=== PATIENT | female | born 1940 | race Caucasian/White ===

== ENCOUNTER 2022-12-29 02:33 | Emergency (ER) | payer MEDICARE, OTHER, SELFPAY ==
[2022-12-29 02:45] VITALS: BP 173/75; PULSE 68; RESP 18; TEMP 36.7; O2SAT 99; BMI 35.3
--- NOTE | 2022-12-29 02:59 | ED_ITS ---
HPI - General Adult General Time Seen by Provider: 02:59 <Valente Kelly MD - Last Filed: 01/07/23 19:54> Date Seen: 12/29/22 <Valente Kelly MD - Last Filed: 01/07/23 19:54> Chief complaint: Unspecified Complaint, Adult <Valente Kelly MD - Last Filed: 01/07/23 19:54> Stated complaint: dr called with low K+ results <Valente Kelly MD - Last Filed: 01/07/23 19:54> Time Seen by Provider: 12/29/22 02:38 <Valente Kelly MD - Last Filed: 01/07/23 19:54> Source: patient, RN notes reviewed and old records reviewed <Valente Kelly MD - Last Filed: 01/07/23 19:54> Mode of arrival: ambulatory <Valente Kelly MD - Last Filed: 01/07/23 19:54> Limitations: no limitations <Valente Kelly MD - Last Filed: 01/07/23 19:54> History of Present Illness HPI narrative: 82-year-old female who comes in today with concern for low potassium. Review of chart shows history of hypertension. Patient was seen in clinic yesterday with concern for jaundice and labs were done, potassium reported 2.7 tonight. Per daughter noted jaundice yesterday, prior to this last week patient did not have jaundice. Patient denies nausea, vomiting, abdominal pain. No diarrhea but does note that her stools are light colored. <Valente Kelly MD - Last Filed: 01/07/23 19:54> Related Data Home medications: Home Medications Medication Instructions Recorded Confirmed diltiazem HCl 180 mg 180 mg PO DAILY 09/06/22 09/06/22 capsule,extended release 24 hr hydrochlorothiazide 12.5 mg tablet 12.5 mg PO DAILY 09/06/22 09/06/22 propranolol 40 mg tablet 80 mg PO BID 09/06/22 09/06/22 <Valente Kelly MD - Last Filed: 01/07/23 19:54> Allergies/adverse reactions: Allergies Allergy/AdvReac Type Severity Reaction Status Date / Time No Known Drug Allergies Allergy Verified 12/29/22 02:47 <Valente Kelly MD - Last Filed: 01/07/23 19:54> [facility] Medical History: Medical History (Updated 12/29/22 @ 04:40 by Valente Kelly MD) Hypertension ?I10 - Essential (primary) hypertension (ICD-10) <Valente Kelly MD - Last Filed: 01/07/23 19:54> Surgical History: Surgical History History of biopsy ?Z98.890 - Other specified postprocedural states (ICD-10) History of hysterectomy ?Z90.710 - Acquired absence of both cervix and uterus (ICD-10) <Valente Kelly MD - Last Filed: 01/07/23 19:54> Social History: Social History (Updated 09/06/22 @ 11:00 by Janie Verde ~ [facility], [facility]) Smoking Status: Never smoker Do you use any of these nicotine containing products: None Second hand tobacco smoke exposure: No Non-prescribed substance use: denies use <Valente Kelly MD - Last Filed: 01/07/23 19:54> Exam Narrative: Exam Narrative: General: Well-developed and well-nourished, no acute distress Head: Atraumatic and normocephalic Eyes: Pupils are equal reactive, extraocular motions intact, scleral icterus ENT: External nose and ears are normal, posterior pharynx without erythema or exudate Neck: No midline cervical tenderness, full spontaneous range of motion the neck, trachea midline, no adenopathy Heart: Regular rate and rhythm no murmurs or thrills Lungs: Clear to auscultation bilaterally without wheezes or crackles Abdomen: Soft, nontender, nondistended with active bowel sounds Musculoskeletal: No tenderness, deformity, or edema Neurologic: Awake, alert, and oriented x3, no gross focal neurologic deficits, cranial nerves intact as tested Psych: Mood and affect are appropriate Skin: Jaundice <Valente Kelly MD - Last Filed: 01/07/23 19:54> Const: Vital Signs, click to edit/add: Vital Signs - 24 hr 12/30/22 04:57 12/30/22 12:20 Temperature 98.2 F 99 F Pulse Rate [Right Pulse Oximeter] 67 54 L Respiratory Rate 18 15 Blood Pressure [Le ft Forearm] 113/46 L Blood Pressure [Ri ght Upper Arm] 138/78 Pulse Oximetry 96 98 Oxygen Delivery Me thod Room Air Room Air <Valente Kelly MD - Last Filed: 01/07/23 19:54> Vital Signs, click to edit/add: Vital Signs - 24 hr 12/30/22 04:57 12/30/22 12:20 Temperature 98.2 F 99 F Pulse Rate [Right Pulse Oximeter] 67 54 L Respiratory Rate 18 15 Blood Pressure [Le ft Forearm] 113/46 L Blood Pressure [Ri ght Upper Arm] 138/78 Pulse Oximetry 96 98 Oxygen Delivery Me thod Room Air Room Air <Guille Augustine DO - Last Filed: 12/29/22 21:58> Course Course ED Course: Patient seen and examined, prior records are reviewed. Patient presents today with hyperkalemia found on lab testing done from clinic. However, also has new jaundice in the last couple of days, no abdominal pain, like colored stools. Concern for biliary obstruction, pancreatic malignancy most likely, cannot exclude cholelithiasis. Labs and CT scan ordered. <Valente Kelly MD - Last Filed: 01/07/23 19:54> Reevaluation(s) Time of Reevaluation #1: 03:34 <Valente Kelly MD - Last Filed: 01/07/23 19:54> Reevaluation #1: Labs independently interpreted by me demonstrate hypokalemia with potassium at 2.6, oral and IV replacement ordered. Additionally, total biliru bin is 16.9 with directed 15.2, AST 190, ALT 362, alkaline phosphatase 730. Lipase is normal. CT scan is pending. <Valente Kelly MD - Last Filed: 01/07/23 19:54> Time of Reevaluation #2: 04:05 <Valente Kelly MD - Last Filed: 01/07/23 19:54> Reevaluation #2: CT scan independently interpreted by me demonstrates dilated gallbladder with stone in the base, dilatation of the intra and extrahepatic ducts as well as common duct. Patient needs ERCP and likely stent placement. Will discuss with gastroenterology. <Valente Kelly MD - Last Filed: 01/07/23 19:54> Time of Reevaluation #3: 04:37 <Valente Kelly MD - Last Filed: 01/07/23 19:54> Reevaluation #3: Radiology interpretation of CT agrees with my initial interpretation. IMPRESSION: Severe intra and extrahepatic biliary duct dilation, with the CBD measuring up t o 1.2 cm. Filling defects within the mid and distal CBD are noted. However, there is also an ill-defined hypodensity within the subjacent pancreatic head, measuring 8 x 7 mm (series 2, image 34). Distal to the mid CBD filling defects/pancreatic head lesion the CBD appears of normal caliber. Differential for the biliary duct dilation includes choledocholithiasis versus obstructing pancreatic head lesion. Recommend MRCP/pancreatic mass protocol and/or ERCP to further evaluate. Cholelithiasis within a severely distended gallbladder, without wall thickening or pericholecystic inflammation to suggest acute cholecystitis. Colonic diverticulosis without evidence of acute diverticulitis. Moderate size hiatal hernia. Contacted [facility] for GI consult and transfer.. <Valente Kelly MD - Last Filed: 01/07/23 19:54> Additional Reevaluation(s): 5:13 a.m. updated patient and daughter regarding diagnosis and plan. Plan for MRCP in the morning and transfer for ERCP. <Valente Kelly MD - Last Filed: 01/07/23 19:54> Consultations Consultation #1: 4:55 [address] care discussed with Dr. Bishop, gastroenterology with [facility] who agrees with need for transfer for ERCP. No further recommendations at this time. Patient will be weight listed for transfer. <Valente Kelly MD - Last Filed: 01/07/23 19:54> Vital Signs Vital signs: Initial Vital Signs Temperature 98.0 F 12/29/22 02:45 Temperature Source Temporal Artery Scan 12/29/22 02:45 Pulse Rate 68 12/29/22 02:45 Respiratory Rate 18 12/29/22 02:45 Blood Pressure 173/75 H 12/29/22 02:45 Blood Pressure Mean 107 H 12/29/22 02:45 Blood Pressure Position Supine 12/29/22 02:45 Pulse Oximetry 99 12/29/22 02:45 Oxygen Delivery Method Room Air 12/29/22 02:45 Vital Signs Temperature 98.0 F 12/29/22 02:45 Pulse Rate 68 12/29/22 02:45 Respiratory Rate 18 12/29/22 02:45 Blood Pressure 173/75 H 12/29/22 02:45 Pulse Oximetry 99 12/29/22 02:45 Oxygen Delivery Method Room Air 12/29/22 02:45 Temperature 99 F 12/30/22 12:20 Pulse Rate 54 L 12/30/22 12:20 Respiratory Rate 15 12/30/22 12:20 Blood Pressure 113/46 L 12/30/22 12:20 Pulse Oximetry 98 12/30/22 12:20 Oxygen Delivery Method Room Air 12/30/22 12:20 <Valente Kelly MD - Last Filed: 01/07/23 19:54> Initial Vital Signs Temperature 98.0 F 12/29/22 02:45 Temperature Source Temporal Artery Scan 12/29/22 02:45 Pulse Rate 68 12/29/22 02:45 Respiratory Rate 18 12/29/22 02:45 Blood Pressure 173/75 H 12/29/22 02:45 Blood Pressure Mean 107 H 12/29/22 02:45 Blood Pressure Position Supine 12/29/22 02:45 Pulse Oximetry 99 12/29/22 02:45 Oxygen Delivery Method Room Air 12/29/22 02:45 Vital Signs Temperature 98.0 F 12/29/22 02:45 Pulse Rate 68 12/29/22 02:45 Respiratory Rate 18 12/29/22 02:45 Blood Pressure 173/75 H 12/29/22 02:45 Pulse Oximetry 99 12/29/22 02:45 Oxygen Delivery Method Room Air 12/29/22 02:45 Temperature 99 F 12/30/22 12:20 Pulse Rate 54 L 12/30/22 12:20 Respiratory Rate 15 12/30/22 12:20 Blood Pressure 113/46 L 12/30/22 12:20 Pulse Oximetry 98 12/30/22 12:20 Oxygen Delivery Method Room Air 12/30/22 12:20 <Guille Augustine DO - Last Filed: 12/29/22 21:58> Medications Administered Medications: Discontinued Medications Generic Name Dose Route Start Last Admin Trade Name Freq PRN Reason Stop Dose Admin Potassium Chloride 10 meq in 100 mls @ 100 mls/hr 12/29/22 03:20 12/29/22 04:49 Potassium Chloride IVPB 12/29/22 04:19 Infused ONCE ONE Infusion Sodium Chloride 1,000 mls @ 75 mls/hr 12/29/22 15:31 12/30/22 05:03 0.9 % Sodium Chloride 1000 Ml IV 75 mls/hr .[id number] OTILIA Administration Potassium Chloride/Sodium Chloride 1,000 mls @ 125 mls/hr 12/30/22 08:00 12/30/22 13:44 0.9 % Sodium Ch + Kcl 20 Meq/L IV 125 mls/hr .Q8H OTILIA Infusion Potassium Bicarbonate 25 meq 12/29/22 03:19 12/29/22 03:44 Potassium Bicarb 25 Meq Effervescent Tab PO 12/29/22 03:20 25 meq ONCE ONE Administration Potassium Chloride 40 meq 12/29/22 03:34 12/29/22 03:44 Potassium Chloride 10 Meq Capsule Er PO 12/29/22 03:35 40 meq ONCE ONE Administration <Valente Kelly MD - Last Filed: 01/07/23 19:54> Discontinued Medications Generic Name Dose Route Start Last Admin Trade Name Freq PRN Reason Stop Dose Admin Potassium Chloride 10 meq in 100 mls @ 100 mls/hr 12/29/22 03:20 12/29/22 04:49 Potassium Chloride IVPB 12/29/22 04:19 Infused ONCE ONE Infusion Sodium Chloride 1,000 mls @ 75 mls/hr 12/29/22 15:31 12/30/22 05:03 0.9 % Sodium Chloride 1000 Ml IV 75 mls/hr .[id number] OTILIA Administration Potassium Chloride/Sodium Chloride 1,000 mls @ 125 mls/hr 12/30/22 08:00 12/30/22 13:44 0.9 % Sodium Ch + Kcl 20 Meq/L IV 125 mls/hr .Q8H OTILIA Infusion Potassium Bicarbonate 25 meq 12/29/22 03:19 12/29/22 03:44 Potassium Bicarb 25 Meq Effervescent Tab PO 12/29/22 03:20 25 meq ONCE ONE Administration Potassium Chloride 40 meq 12/29/22 03:34 12/29/22 03:44 Potassium Chloride 10 Meq Capsule Er PO 12/29/22 03:35 40 meq ONCE ONE Administration <Guille Augustine DO - Last Filed: 12/29/22 21:58> Medical Decision Making MDM Narrative Medical decision making narrative: Patient was signed out to me at start of my shift pending transfer for ERCP. MRCP was done during my shift showing diffuse intrahepatic biliary duct dilation and dilation the common hepatic duct. There appears to be filling defect a space-occupying lesion seen consistent with choledocholithiasis rather than a pancreatic lesion. They recommend ERCP. We are still waiting for transfer so the patient can receive an ERCP. <Guille Augustine DO - Last Filed: 12/29/22 21:58> Lab Data Labs: Lab Results 12/29/22 12/29/22 12/29/22 Range/Units 02:55 03:33 07:30 WBC (4.50-11.00) K/uL RBC (4.00-5.20) m/uL Hgb (12.0-16.0) gm/dL Hct (33.0-51.0) % MCV (80-100) fL MCH (26-34) pg MCHC (32-36) gm/dL RDW Coeff of Melba (11.5-15.5) % Plt Count (140-440) K/uL Neut % (Auto) (42.0-72.0) % Lymph % (Auto) (20-44) % [place] % (Auto) (0.0-11.0) % Eos % (Auto) (0.0-7.0) % Baso % (Auto) (0.0-3.0) % Neut # (Auto) (1.7-7.0) K/uL Lymph # (Auto) (0.90-2.90) K/uL [place] # (Auto) (0.00-0.90) K/UL Eos # (Auto) (0.00-0.50) K/uL Baso # (Auto) (0.00-0.30) K/uL Abs Immat Gran (auto) (0.00-0.30) K/uL Imm/Tot Granulo (auto) % INR 0.80 L (0.91-1.10) Sodium 138 (135-149) mmol/L Potassium 2.6 L* 3.3 L (3.6-5.1) mmol/L Chloride 103 (96-114) mmol/L Carbon Dioxide 24 (20-32) mmol/L Anion Gap 11 (7-15) mEq/L BUN 32 H (7-30) mg/dL Creatinine 1.0 (0.5-1.5) mg/dL Estimated Creat Clear 55.29 Estimated GFR 57 ml/min Glucose 146 H (60-115) mg/dL Calcium 9.0 (8.4-10.6) mg/dL Magnesium 2.6 (1.5-2.6) mg/dL Total Bilirubin 16.9 H* (0.1-1.5) mg/dL Direct Bilirubin 15.2 H (0.0-0.5) mg/dL AST 190 H (12-35) U/L ALT 362 H (4-35) U/L Alkaline Phosphatase 730 H (40-150) U/L Total Protein 7.8 (6.0-8.3) g/dL Albumin 4.0 (3.3-5.0) g/dL Lipase 235 (23-300) U/L Lab Acknowledgement Test Added 12/30/22 Range/Units 07:50 WBC 7.14 (4.50-11.00) K/uL RBC 3.58 L (4.00-5.20) m/uL Hgb 10.8 L (12.0-16.0) gm/dL Hct 32.8 L (33.0-51.0) % MCV 92 (80-100) fL MCH 30 (26-34) pg MCHC 33 (32-36) gm/dL RDW Coeff of Melba 19.4 H (11.5-15.5) % Plt Count 206 (140-440) K/uL Neut % (Auto) 69.1 (42.0-72.0) % Lymph % (Auto) 19.3 L (20-44) % Durham % (Auto) 7.7 (0.0-11.0) % Eos % (Auto) 1.8 (0.0-7.0) % Baso % (Auto) 1.3 (0.0-3.0) % Neut # (Auto) 4.93 (1.7-7.0) K/uL Lymph # (Auto) 1.40 (0.90-2.90) K/uL [place] # (Auto) 0.50 (0.00-0.90) K/UL Eos # (Auto) 0.13 (0.00-0.50) K/uL Baso # (Auto) 0.09 (0.00-0.30) K/uL Abs Immat Gran (auto) 0.06 (0.00-0.30) K/uL Imm/Tot Granulo (auto) 0.8 % INR (0.91-1.10) Sodium 135 (135-149) mmol/L Potassium 3.1 L (3.6-5.1) mmol/L Chloride 107 (96-114) mmol/L Carbon Dioxide 20 (20-32) mmol/L Anion Gap 8 (7-15) mEq/L BUN 24 (7-30) mg/dL Creatinine 0.7 (0.5-1.5) mg/dL Estimated Creat Clear 55.29 Estimated GFR 87 ml/min Glucose 126 H (60-115) mg/dL Calcium 8.5 (8.4-10.6) mg/dL Magnesium (1.5-2.6) mg/dL Total Bilirubin 16.9 H* (0.1-1.5) mg/dL Direct Bilirubin (0.0-0.5) mg/dL AST 205 H (12-35) U/L ALT 309 H (4-35) U/L Alkaline Phosphatase 663 H (40-150) U/L Total Protein 6.7 (6.0-8.3) g/dL Albumin 3.3 (3.3-5.0) g/dL Lipase (23-300) U/L Lab Acknowledgement <Valente Kelly MD - Last Filed: 01/07/23 19:54> Lab Results 12/29/22 12/29/22 12/29/22 Range/Units 02:55 03:33 07:30 WBC (4.50-11.00) K/uL RBC (4.00-5.20) m/uL Hgb (12.0-16.0) gm/dL Hct (33.0-51.0) % MCV (80-100) fL MCH (26-34) pg MCHC (32-36) gm/dL RDW Coeff of Melba (11.5-15.5) % Plt Count (140-440) K/uL Neut % (Auto) (42.0-72.0) % Lymph % (Auto) (20-44) % [place] % (Auto) (0.0-11.0) % Eos % (Auto) (0.0-7.0) % Baso % (Auto) (0.0-3.0) % Neut # (Auto) (1.7-7.0) K/uL Lymph # (Auto) (0.90-2.90) K/uL [place] # (Auto) (0.00-0.90) K/UL Eos # (Auto) (0.00-0.50) K/uL Baso # (Auto) (0.00-0.30) K/uL Abs Immat Gran (auto) (0.00-0.30) K/uL Imm/Tot Granulo (auto) % INR 0.80 L (0.91-1.10) Sodium 138 (135-149) mmol/L Potassium 2.6 L* 3.3 L (3.6-5.1) mmol/L Chloride 103 (96-114) mmol/L Carbon Dioxide 24 (20-32) mmol/L Anion Gap 11 (7-15) mEq/L BUN 32 H (7-30) mg/dL Creatinine 1.0 (0.5-1.5) mg/dL Estimated Creat Clear 55.29 Estimated GFR 57 ml/min Glucose 146 H (60-115) mg/dL Calcium 9.0 (8.4-10.6) mg/dL Magnesium 2.6 (1.5-2.6) mg/dL Total Bilirubin 16.9 H* (0.1-1.5) mg/dL Direct Bilirubin 15.2 H (0.0-0.5) mg/dL AST 190 H (12-35) U/L ALT 362 H (4-35) U/L Alkaline Phosphatase 730 H (40-150) U/L Total Protein 7.8 (6.0-8.3) g/dL Albumin 4.0 (3.3-5.0) g/dL Lipase 235 (23-300) U/L Lab Acknowledgement Test Added 12/30/22 Range/Units 07:50 WBC 7.14 (4.50-11.00) K/uL RBC 3.58 L (4.00-5.20) m/uL Hgb 10.8 L (12.0-16.0) gm/dL Hct 32.8 L (33.0-51.0) % MCV 92 (80-100) fL MCH 30 (26-34) pg MCHC 33 (32-36) gm/dL RDW Coeff of Melba 19.4 H (11.5-15.5) % Plt Count 206 (140-440) K/uL Neut % (Auto) 69.1 (42.0-72.0) % Lymph % (Auto) 19.3 L (20-44) % [place] % (Auto) 7.7 (0.0-11.0) % Eos % (Auto) 1.8 (0.0-7.0) % Baso % (Auto) 1.3 (0.0-3.0) % Neut # (Auto) 4.93 (1.7-7.0) K/uL Lymph # (Auto) 1.40 (0.90-2.90) K/uL [place] # (Auto) 0.50 (0.00-0.90) K/UL Eos # (Auto) 0.13 (0.00-0.50) K/uL Baso # (Auto) 0.09 (0.00-0.30) K/uL Abs Immat Gran (auto) 0.06 (0.00-0.30) K/uL Imm/Tot Granulo (auto) 0.8 % INR (0.91-1.10) Sodium 135 (135-149) mmol/L Potassium 3.1 L (3.6-5.1) mmol/L Chloride 107 (96-114) mmol/L Carbon Dioxide 20 (20-32) mmol/L Anion Gap 8 (7-15) mEq/L BUN 24 (7-30) mg/dL Creatinine 0.7 (0.5-1.5) mg/dL Estimated Creat Clear 55.29 Estimated GFR 87 ml/min Glucose 126 H (60-115) mg/dL Calcium 8.5 (8.4-10.6) mg/dL Magnesium (1.5-2.6) mg/dL Total Bilirubin 16.9 H* (0.1-1.5) mg/dL Direct Bilirubin (0.0-0.5) mg/dL AST 205 H (12-35) U/L ALT 309 H (4-35) U/L Alkaline Phosphatase 663 H (40-150) U/L Total Protein 6.7 (6.0-8.3) g/dL Albumin 3.3 (3.3-5.0) g/dL Lipase (23-300) U/L Lab Acknowledgement <Guille Augustine DO - Last Filed: 12/29/22 21:58> Imaging Data Abdominal MRI: Radiologist's impression: 1. Diffuse intrahepatic biliary duct dilation, and dilation of the common hepatic duct. There is abrupt change in caliber approximately 3.7 cm upstream to the ampulla of Vater, where there is a filling defect suggestive of a space-occupying lesion measuring approximately 0.8 x 0.5 cm. This is favored to reflect a biliary lesion or choledocholithiasis rather than pancreatic lesion, recommend further evaluation with ERCP. 2. Hydropic appearing gallbladder with large gallstone at the fundus. No significant pericholecystic fluid. Dictated by Mirella Chahal MD @ 12/29/2022 8:01:23 PM <Guille Augustine DO - Last Filed: 12/29/22 21:58> Discharge Plan Discharge Clinical Impression: Biliary obstruction, Obstructive jaundice, Acute hypokalemia <Valente Kelly MD - Last Filed: 01/07/23 19:54> Patient Disposition: Xfer Other <Valente Kelly MD - Last Filed: 01/07/23 19:54> Discharge Location: [facility] <Valente Kelly MD - Last Filed: 01/07/23 19:54> Prescriptions: No Action hydrochlorothiazide 12.5 mg tablet 12.5 mg PO DAILY propranolol 40 mg tablet 80 mg PO BID diltiazem HCl 180 mg capsule,extended release 24hr 180 mg PO DAILY <Valente Kelly MD - Last Filed: 01/07/23 19:54> Stand Alone Forms: MyHealth Info Instructions <Valente Kelly MD - Last Filed: 01/07/23 19:54>
[2022-12-29 03:14] LABS: Chloride* 103 mmol/L (96-114); Sodium* 138 mmol/L (135-149)
--- NOTE | 2022-12-29 03:15 | CRLHL7_ITS ---
For Patients: As a result of the 21st Century Cures Act, medical imaging exams and procedure reports are released immediately into your electronic medical record. You may view this report before your referring provider. If you have questions, please contact your health care provider. INDICATION: painless jaundice TECHNIQUE: CT abdomen and pelvis with 85 cc Isovue 370 IV contrast. COMPARISON: None. FINDINGS: The liver is normal in size, shape and attenuation. Patent portal vein. The spleen and adrenal glands are within normal limits. The kidneys are unremarkable. Severe intra and extrahepatic biliary duct dilation, with the CBD measuring up to 1.2 cm. Filling defects within the mid and distal CBD are noted. However, there is also an ill-defined hypodensity within the subjacent pancreatic head, measuring 8 x 7 mm (series 2, image 34). Differential for the biliary duct dilation includes choledocholithiasis versus obstructing pancreatic head lesion. Recommend MRCP/pancreatic mass protocol and/or ERCP to further evaluate. Cholelithiasis within a severely distended gallbladder, without wall thickening or pericholecystic inflammation to suggest acute cholecystitis. Moderate-sized hiatal hernia. No evidence of bowel obstruction. Mild-moderate fecal retention throughout the colon. Colonic diverticulosis without evidence of acute diverticulitis. No significant free fluid and no free air. Status post hysterectomy. The lower chest is unremarkable. Tiny fat containing epigastric hernia. Levocurvature of the lumbar spine. Severe multilevel degenerative spondylosis. Grade 1 degenerative anterolisthesis L4 on L5. No acute fracture or aggressive osseous lesion. IMPRESSION: Severe intra and extrahepatic biliary duct dilation, with the CBD measuring up to 1.2 cm. Filling defects within the mid and distal CBD are noted. However, there is also an ill-defined hypodensity within the subjacent pancreatic head, measuring 8 x 7 mm (series 2, image 34). Distal to the mid CBD filling defects/pancreatic head lesion the CBD appears of normal caliber. Differential for the biliary duct dilation includes choledocholithiasis versus obstructing pancreatic head lesion. Recommend MRCP/pancreatic mass protocol and/or ERCP to further evaluate. Cholelithiasis within a severely distended gallbladder, without wall thickening or pericholecystic inflammation to suggest acute cholecystitis. Colonic diverticulosis without evidence of acute diverticulitis. Moderate size hiatal hernia. Please note that all CT scans at this facility use dose modulation, iterative reconstruction, and/or weight-based dosing when appropriate to reduce radiation dose to as low as reasonably achievable. Dictated by Olvin Garcia MD @ 12/29/2022 4:30:21 AM (Electronically Signed)
[2022-12-29 03:17] LABS: Anion Gap 11 mEq/L (7-15); Blood Urea Nitrogen* 32 mg/dL (7-30); Carbon Dioxide* 24 mmol/L (20-32); Est. Creatinine Clearance* 55.29; Estimated Glomerular Filt Rate 57 ml/min
[2022-12-29 03:18] LABS: Glucose* 146 mg/dL (60-115); Magnesium* 2.6 mg/dL (1.5-2.6)
[2022-12-29 03:26] LABS: Alkaline Phosphatase* 730 U/L (40-150); Aspartate Amino Transferase* 190 U/L (12-35); Bilirubin Direct* 15.2 mg/dL (0.0-0.5); Lipase* 235 U/L (23-300); Total Protein* 7.8 g/dL (6.0-8.3)
[2022-12-29 03:27] LABS: Alanine Aminotransferase* 362 U/L (4-35)
[2022-12-29 03:30] LABS: Bilirubin Total* 16.9 mg/dL (0.1-1.5); Potassium* 2.6 mmol/L (3.6-5.1)
[2022-12-29 03:44] LABS: Prothrombin Time 11.6 Seconds
[2022-12-29] MEDS: POTASSIUM BICARB 25 MEQ EFFERVESCENT TAB PO (03:44)
[2022-12-29] MEDS: POTASSIUM CHLORIDE 10 MEQ CAPSULE ER 40 MEQ PO (03:44)
[2022-12-29] MEDS: POTASSIUM CHLORIDE 10 MEQ/100 ML PIGGYBACK 100 MEQ IVPB (03:44)
[2022-12-29 05:03] VITALS: BP 174/63; PULSE 60; RESP 18; TEMP 36.7; O2SAT 99
--- NOTE | 2022-12-29 05:14 | CRLHL7_ITS ---
For Patients: As a result of the Century Cures Act, medical imaging exams and procedure reports are released immediately into your electronic medical record. You may view this report before your referring provider. If you have questions, please contact your health care provider. Indication: Is obstruction. Possible pancreatic lesion. Technique: Multisequence multiplanar MRI of the abdomen both with and without IV contrast (16 mL Dotarem). Comparison: CT abdomen/pelvis dated 12/29/2022. Findings: Liver: No significant hepatic steatosis. Bile ducts: Diffuse intrahepatic biliary duct dilation. There is dilation of the common hepatic duct. There is abrupt change in caliber approximately 3.7 cm upstream of the ampulla of Vater, where there is a filling defect suggestive of a space occupying lesion measuring approximately 0.8 x 0.5 cm. This corresponds to an ill-defined area of hypo enhancement on postcontrast images, favored to reflect a biliary lesion rather than pancreatic lesion. Gallbladder: Large gallstone at the fundus. Hydropic appearing gallbladder, without significant pericholecystic fluid or gallbladder wall edema. Pancreas: As above. No pancreatic duct dilation. Spleen: Unremarkable. Adrenals: Unremarkable. Kidneys: Kidneys enhance symmetrically, without hydronephrosis. Small left renal cysts noted. Retroperitoneum: No lymphadenopathy. Visualized Bowel and mesentery: Visualized bowel is nondilated. Moderate-size hiatal hernia. Vessels: Unremarkable. Abdominal wall: No acute abdominal wall abnormality. Bones: No suspicious/aggressive enhancing focal osseous lesion. Impression: 1. Diffuse intrahepatic biliary duct dilation, and dilation of the common hepatic duct. There is abrupt change in caliber approximately 3.7 cm upstream to the ampulla of Vater, where there is a filling defect suggestive of a space-occupying lesion measuring approximately 0.8 x 0.5 cm. This is favored to reflect a biliary lesion or choledocholithiasis rather than pancreatic lesion, recommend further evaluation with ERCP. 2. Hydropic appearing gallbladder with large gallstone at the fundus. No significant pericholecystic fluid. Dictated by Mirella Chahal MD @ 12/29/2022 8:01:23 PM (Electronically Signed)
[2022-12-29 06:10] VITALS: BP 168/71; PULSE 62; RESP 18; TEMP 36.7; O2SAT 99
[2022-12-29 07:53] LABS: Potassium* 3.3 mmol/L (3.6-5.1)
[2022-12-29 11:47] VITALS: BP 147/58; PULSE 97; RESP 16; TEMP 36.6; O2SAT 95
[2022-12-29] MEDS: 0.9 % SODIUM CHLORIDE 1000 ml 1,000 ML 75 ML IV (15:40)
[2022-12-29 16:51] VITALS: BP 136/47; PULSE 60; RESP 18; O2SAT 96
[2022-12-30 04:57] VITALS: BP 138/78; PULSE 67; RESP 18; TEMP 36.8; O2SAT 96
--- NOTE | 2022-12-30 05:00 | ED.NURSE ---
ANW called letting us know she is still 2nd on the waitlist for transfer. vitals have been stable.
[2022-12-30] MEDS: 0.9 % SODIUM CHLORIDE 1000 ml 1,000 ML 75 ML IV (05:03)
[2022-12-30 08:03] LABS: Basophils Absolute Auto 0.09 K/uL (0.00-0.30); Basophils Percent Auto 1.3 % (0.0-3.0); Eosinophils Absolute Auto 0.13 K/uL (0.00-0.50); Eosinophils Percent Auto 1.8 % (0.0-7.0); Hematocrit 32.8 % (33.0-51.0); Hemoglobin* 10.8 gm/dL (12.0-16.0); Immature Granulocytes Abs Auto 0.06 K/uL (0.00-0.30); Immature Granulocytes Pct Auto 0.8 %; Lymphocytes Percent Auto 19.3 % (20-44); Mean Corpuscular HGB Conc 33 gm/dL (32-36); Mean Corpuscular Hemoglobin 30 pg (26-34); Mean Corpuscular Volume 92 fL (80-100); Monocytes Percent Auto 7.7 % (0.0-11.0); Neutrophils Absolute Auto 4.93 K/uL (1.7-7.0); Neutrophils Percent Auto 69.1 % (42.0-72.0); Platelet Count* 206 K/uL (140-440); RDW Coefficient of Variation % 19.4 % (11.5-15.5); Red Blood Count 3.58 m/uL (4.00-5.20); White Blood Count* 7.14 K/uL (4.50-11.00)
[2022-12-30 08:18] LABS: Slide Review Reflex No
[2022-12-30 08:23] LABS: Albumin* 3.3 g/dL (3.3-5.0); Chloride* 107 mmol/L (96-114)
[2022-12-30 08:24] LABS: Potassium* 3.1 mmol/L (3.6-5.1); Sodium* 135 mmol/L (135-149)
[2022-12-30 08:26] LABS: Alkaline Phosphatase* 663 U/L (40-150); Anion Gap 8 mEq/L (7-15); Aspartate Amino Transferase* 205 U/L (12-35); Blood Urea Nitrogen* 24 mg/dL (7-30); Carbon Dioxide* 20 mmol/L (20-32); Creatinine* 0.7 mg/dL (0.5-1.5); Est. Creatinine Clearance* 55.29; Estimated Glomerular Filt Rate 87 ml/min; Total Protein* 6.7 g/dL (6.0-8.3)
[2022-12-30 08:27] LABS: Alanine Aminotransferase* 309 U/L (4-35); Calcium* 8.5 mg/dL (8.4-10.6); Glucose* 126 mg/dL (60-115)
[2022-12-30] MEDS: 0.9 % SODIUM CH + KCL 20 mEq/L 1,000 ML 125 ML IV (08:32)
[2022-12-30 08:33] LABS: Bilirubin Total* 16.9 mg/dL (0.1-1.5)
--- NOTE | 2022-12-30 10:17 | ED.NURSE ---
Patient noted IV site to be leaking fluids. IV site discontinued and new line placed in right forearm.
[2022-12-30 12:20] VITALS: BP 113/46; PULSE 54; RESP 15; TEMP 37.2; O2SAT 98
--- NOTE | 2022-12-30 13:19 | ED.NURSE ---
Report given to Med/Surg and transport contacted for ALS transfer. Patient to transfer to [facility].
== END 2022-12-30 13:43 | disposition other institution (70) ==
PROVIDERS: Family Medicine; Emergency Provider Family Medicine; PCP Family Medicine
DX: E87.6 Hypokalemia (principal); R17 Unspecified jaundice; K83.1 Obstruction of bile duct
CPT/HCPCS: 36415; 74177; 74183; 80048; 80053; 80076; 83690; 83735; 84132; 85025; 85610; 93005; 96365; 99285; A9270; A9575; J3480; J7030; Q9967

== ENCOUNTER 2022-12-30 13:38 | Outpatient (CLI) | payer MEDICARE, OTHER, SELFPAY | END 2022-12-30 13:39 | disposition home or self-care (01) | LOC: AMB 01-02 22:17 | PROVIDERS: PCP Family Medicine; Visit Provider Emergency Medicine Emergency Medical Services | DX: K83.1 Obstruction of bile duct (principal); E87.6 Hypokalemia | CPT/HCPCS: A0425; A0427 ==